=== PATIENT | male | born 1980 ===

== ENCOUNTER 2018-11-03 09:47 | Day surgery (SDC) | payer BC ==
[~2018-11-03] VITALS: Ht 180.3 cm; Wt 121.2 kg
[~2018-11-03 09:47] MED LIST: Adderall Xr 2020 MG PO; CHLO500 PO; CYCL10 PO; ESOM20; GABA300 PO; IBUP400; OXYACE5T PO; OXYC10TA19 PO; PHENTRAMINE; PRED10 PO; PROM25 PO; PROM25S PR; Phentermine HCl30 MG PO
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
== END 2018-11-03 12:28 | disposition home or self-care (01) ==
LOC: ORSCSDS 09:47
PROVIDERS: Internal Medicine Gastroenterology
PROC: 0DB58ZX Excision of Esophagus, Via Natural or Artificial Opening Endoscopic, Diagnostic (ICD-10-PCS; principal; 2018-11-03 11:00)
PROC: 0D758ZZ Dilation of Esophagus, Via Natural or Artificial Opening Endoscopic (ICD-10-PCS; principal; 2018-11-03 11:00)
PROC: 0DB98ZX Excision of Duodenum, Via Natural or Artificial Opening Endoscopic, Diagnostic (ICD-10-PCS; principal; 2018-11-03 11:00)
DX: R13.10 Dysphagia, unspecified (principal); K31.89 Other diseases of stomach and duodenum; K22.2 Esophageal obstruction; K21.9 Gastro-esophageal reflux disease without esophagitis; K29.80 Duodenitis without bleeding; G47.33 Obstructive sleep apnea (adult) (pediatric); F98.8 Other specified behavioral and emotional disorders with onset usually occurring in childhood and adolescence; Z79.899 Other long term (current) drug therapy
CPT/HCPCS: 88305; J1100; J2250; J2405; J2704; J7120

== ENCOUNTER 2018-12-11 17:16 | Emergency (ER) | payer BC ==
[~2018-12-11] VITALS: Ht 175.3 cm; Wt 117.9 kg
[2018-12-11] MEDS ORDERED: CEPH500 PO (22:19)
== END 2018-12-11 18:04 | disposition home or self-care (01) ==
LOC: ER 17:16
DX: S91.202A Unspecified open wound of left great toe with damage to nail, initial encounter (principal); W22.8XXA Striking against or struck by other objects, initial encounter; Z88.0 Allergy status to penicillin; Z79.899 Other long term (current) drug therapy; I10 Essential (primary) hypertension
CPT/HCPCS: 11730; 90471; 90714; 99282-25